=== PATIENT | female | born 1950 | race Asian ===

== ENCOUNTER 2017-07-24 06:05 | Day surgery (SDC) | payer MEDICARE, OTHER ==
[~2017-07-24] VITALS: Ht 152.4 cm; Wt 75.5 kg
[2017-07-24] MEDS ORDERED: SODIUM CHLORIDE 0.9% 1,000 ML IV ONE ×2 (06:18→07:00)
[2017-07-24] MEDS ORDERED: FentaNYL CITRATE-PF 100 MCG/2 ML VIAL ONE (07:28)
[2017-07-24] MEDS ORDERED: MIDAZOLAM HCL 2 MG/2 ML VIAL ONE (07:28)
[2017-07-24] MEDS ORDERED: MethylPREDNISolone SOD SUCC 125 MG/2 ML VIAL IVP ONE (09:00)
[2017-07-24] MEDS ORDERED: MethylPREDNISolone SOD SUCC 125 MG/2 ML VIAL ONE (09:10)
[2017-07-24] MEDS ORDERED: LIDOCAINE HCL 2% 30 ML JELLY TP ONE (12:00)
[2017-07-24] MEDS ORDERED: BENZOCAINE 20% 50 MCG/SPRAY 57 GM TP ONE (12:00)
[2017-07-24] MEDS ORDERED: LIDOCAINE HCL 4% 50 ML SOLUTION TP ONE (12:00)
[2017-07-24] MEDS ORDERED: OXYGEN THERAPY IH SCH (20:00)
== END 2017-07-24 10:00 | disposition home or self-care (01) ==
LOC: SURGERY 06:05
PROVIDERS: ATTEND Internal Medicine Critical Care Medicine
DX: J38.4 Edema of larynx (principal); B37.0 Candidal stomatitis; J45.909 Unspecified asthma, uncomplicated; Z98.890 Other specified postprocedural states; Z85.3 Personal history of malignant neoplasm of breast
CPT/HCPCS: 31623; 31624; 71010; 87015 ×2; 87070; 87101; 87147; 87205; 87220; 88108; 88312; 94640; J2250; J2930; J3010; J7030

== ENCOUNTER 2021-02-13 06:30 | Day surgery (SDC) | payer MEDICARE, OTHER ==
[2021-02-08 13:35] LABS: COVID AG,FIA SOURCE NASOPHARYNGEAL
[~2021-02-13] VITALS: Ht 147.3 cm; Wt 68.2 kg
[~2021-02-13 06:30] MED LIST: SODIUM CHLORIDE 0.9% 1,000 ML IV ONE
[2021-02-13] MEDS ORDERED: ALBUTEROL SULFATE 5 MG/ML 20 ML NEB SOLN [BULK] NEB ONE (06:31)
[2021-02-13] MEDS ORDERED: LIDOCAINE 2% 30 ML JELLY TP ONE (06:31)
[2021-02-13] MEDS ORDERED: BENZOCAINE 20% 50 MCG/SPRAY 57 GM TP ONE (06:31)
[2021-02-13] MEDS ORDERED: LIDOCAINE 4% 50 ML SOLUTION TP ONE (06:31)
[2021-02-13] MEDS ORDERED: FentaNYL CITRATE PF 100 MCG/2 ML VIAL ONE (07:18)
[2021-02-13] MEDS ORDERED: MIDAZOLAM HCL 2 MG/2 ML VIAL ONE (07:18)
[2021-02-13] MEDS ORDERED: DYRE50 PO (08:14)
[2021-02-13] MEDS ORDERED: DEXL30CA3 PO (08:14)
[2021-02-13] MEDS ORDERED: ROSU10TA72 PO (08:14)
[2021-02-13] MEDS ORDERED: LUBI8CAP PO (08:14)
[2021-02-13] MEDS ORDERED: LEVA0.6319 NEB (08:14)
[2021-02-13] MEDS ORDERED: ASPI-1450 PO (08:14)
[2021-02-13] MEDS ORDERED: ALEN10TA33 PO (08:14)
[2021-02-13] MEDS ORDERED: CYAN100056 IM (08:14)
[2021-02-13] MEDS ORDERED: LORA-999 PO (08:14)
[2021-02-13] MEDS ORDERED: ERGO500054 PO (08:14)
[2021-02-13] MEDS ORDERED: CYAN100T45 PO (08:14)
[2021-02-13] MEDS ORDERED: MONT-35 PO (08:14)
[2021-02-13 08:15] LABS: GLUCOMETER DEV NAME(LOC) SDS.; GLUCOSE,POINT OF CARE 134 MG/DL (70-110)
[2021-02-13] MEDS ORDERED: MethylPREDNISolone SOD SUCC 125 MG/2 ML VIAL IVP ONE (09:00)
[2021-02-13] MEDS ORDERED: MethylPREDNISolone SOD SUCC 125 MG/2 ML VIAL ONE (09:45)
[2021-02-13] MEDS ORDERED: OXYGEN THERAPY IH SCH (20:00)
== END 2021-02-13 10:20 | disposition home or self-care (01) ==
LOC: SURGERY 06:30
PROVIDERS: ATTEND Internal Medicine Critical Care Medicine
DX: J38.4 Edema of larynx (principal); B37.0 Candidal stomatitis; J44.9 Chronic obstructive pulmonary disease, unspecified; Z98.890 Other specified postprocedural states; Z79.899 Other long term (current) drug therapy
CPT/HCPCS: 31623; 31624; 71045; 82962; 87015; 87070; 87077; 87101; 87205; 87206; 87220; 87426; 88108; 88184; 88185; 88312; C9803; J2250; J2930; J3010; J7030; J7611; Z7610

== ENCOUNTER 2023-01-16 06:40 | Day surgery (SDC) | payer MEDICARE, OTHER ==
[~2023-01-16] VITALS: Ht 147.3 cm; Wt 68.1 kg
[~2023-01-16 06:40] MED LIST changes: +ALEN10TA33 PO; +ASPI-1450 PO; +CYAN100T45 PO; +DEXL30CA3 PO; +ERGO500054 PO; +LEVA0.6319 NEB; +LORA-999 PO; +LUBI8CAP PO; +MONT-35 PO; +ROSU10TA72 PO; -SODIUM CHLORIDE 0.9% 1,000 ML IV ONE; +TRIA50CA3 PO
[2023-01-16] MEDS ORDERED: BENZOCAINE 20% 50 MCG/SPRAY 57 GM TP ONE (06:41)
[2023-01-16] MEDS ORDERED: ALBUTEROL SULFATE 2.5 MG/0.5 ML NEB SOLUTION NEB ONE (06:41)
[2023-01-16] MEDS ORDERED: LIDOCAINE 2% 11 ML JELLY TP ONE (06:41)
[2023-01-16] MEDS ORDERED: LIDOCAINE 4% 50 ML SOLUTION TP ONE (06:41)
[2023-01-16] MEDS ORDERED: SODIUM CHLORIDE 0.9% 1,000 ML ONE (06:53)
[2023-01-16] MEDS ORDERED: SODIUM CHLORIDE 0.9% 1,000 ML IV ONE (07:00)
[2023-01-16] MEDS ORDERED: FentaNYL CITRATE PF 100 MCG/2 ML VIAL ONE (07:35)
[2023-01-16] MEDS ORDERED: MIDAZOLAM HCL 2 MG/2 ML VIAL ONE (07:35)
[2023-01-16 08:41] LABS: GLUCOMETER DEV NAME(LOC) SDS.; GLUCOSE,POINT OF CARE 133 MG/DL (70-110)
[2023-01-16] MEDS ORDERED: MethylPREDNISolone SOD SUCC 125 MG/2 ML VIAL ONE (09:45)
[2023-01-16] MEDS ORDERED: MethylPREDNISolone SOD SUCC 125 MG/2 ML VIAL IVP ONE (10:00)
== END 2023-01-16 11:00 | disposition home or self-care (01) ==
LOC: SURGERY 06:40
PROVIDERS: ATTEND Internal Medicine Critical Care Medicine
DX: J38.4 Edema of larynx (principal); B37.0 Candidal stomatitis; Z79.899 Other long term (current) drug therapy; Z98.890 Other specified postprocedural states; I10 Essential (primary) hypertension; Z90.49 Acquired absence of other specified parts of digestive tract; E78.00 Pure hypercholesterolemia, unspecified; Z85.3 Personal history of malignant neoplasm of breast
CPT/HCPCS: 31623; 88112; 82962; 87206; 87101; 87220; 87070; 31624; 94640; 71045; 87015; J3010; J2250; J2930; Q9967; J7030; J7613; Z7610

== ENCOUNTER 2024-03-25 06:32 | Day surgery (SDC) | payer MEDICARE, OTHER ==
[~2024-03-25] VITALS: Ht 152.4 cm; Wt 68.0 kg
[2024-03-25] MEDS ORDERED: LIDOCAINE 2% 11 ML JELLY TP ONE (06:33)
[2024-03-25] MEDS ORDERED: BENZOCAINE 20% 50 MCG/SPRAY 57 GM TP ONE (06:33)
[2024-03-25] MEDS ORDERED: ALBUTEROL SULFATE 2.5 MG/0.5 ML NEB SOLUTION NEB ONE (06:33)
[2024-03-25] MEDS ORDERED: LEVALBUTEROL 1.25 MG/0.5 ML NEB SOLUTION NEB ONE (06:33)
[2024-03-25] MEDS ORDERED: LIDOCAINE 4% 50 ML SOLUTION TP ONE (06:33)
[2024-03-25] MEDS ORDERED: SODIUM CHLORIDE 0.9% 1,000 ML ONE (06:46)
[2024-03-25] MEDS ORDERED: MIDAZOLAM HCL 2 MG/2 ML VIAL ONE (07:59)
[2024-03-25] MEDS ORDERED: FentaNYL CITRATE PF 100 MCG/2 ML VIAL ONE (07:59)
[2024-03-25 08:35] LABS: GLUCOMETER DEV NAME(LOC) SDS.; GLUCOSE,POINT OF CARE 110 MG/DL (70-110)
[2024-03-25] MEDS: SODIUM CHLORIDE 0.9% 1,000 ML IV ONE (08:43)
[2024-03-25 09:00] VITALS: PULSE 82; RESP 16; O2SAT 100
[2024-03-25] MEDS: 0.9% SODIUM CHLORIDE 1,000 ML BAG IV ONE (09:02)
[2024-03-25] MEDS ORDERED: MethylPREDNISolone SOD SUCC 125 MG/2 ML VIAL ONE (09:23)
[2024-03-25] MEDS: MethylPREDNISolone SOD SUCC 125 MG/2 ML VIAL IVP ONE (09:30)
== END 2024-03-25 12:20 | disposition home or self-care (01) ==
LOC: SURGERY 06:32
PROVIDERS: ATTEND Internal Medicine Critical Care Medicine
DX: R05.3 Chronic cough (principal); J38.4 Edema of larynx; B37.0 Candidal stomatitis; R06.2 Wheezing; R91.8 Other nonspecific abnormal finding of lung field; J84.10 Pulmonary fibrosis, unspecified; J91.8 Pleural effusion in other conditions classified elsewhere; J98.8 Other specified respiratory disorders; I51.9 Heart disease, unspecified
CPT/HCPCS: 31623; 82962; 87206; 87101; 87220; 87070; 31624; 94640; 71045; 87015; J3010; J2250; J2919; J7030; J7613; Z7610

== ENCOUNTER 2025-08-25 06:47 | Day surgery (SDC) | payer OTHER ==
[~2025-08-25] VITALS: Ht 152.4 cm; Wt 68.0 kg
[~2025-08-25 06:47] MED LIST changes: -LORA-999 PO; +LORA0.5T20 PO; -ROSU10TA72 PO; +ROSU10TA98 PO
[2025-08-25] MEDS ORDERED: SODIUM CHLORIDE 0.9% 1,000 ML ONE (06:48)
[2025-08-25] MEDS: SODIUM CHLORIDE 0.9% 1,000 ML IV ONE (07:21)
[2025-08-25] MEDS ORDERED: MIDAZOLAM HCL 2 MG/2 ML VIAL ONE (08:27)
[2025-08-25] MEDS ORDERED: FentaNYL CITRATE PF 100 MCG/2 ML VIAL ONE (08:27)
[2025-08-25 08:35] LABS: GLUCOMETER DEV NAME(LOC) SDS.; GLUCOSE,POINT OF CARE 120 MG/DL (70-110)
[2025-08-25 10:00] VITALS: PULSE 90; RESP 20; O2SAT 100
[2025-08-25] MEDS ORDERED: LIDOCAINE 4% 50 ML SOLUTION ONE (12:30)
[2025-08-25] MEDS ORDERED: ALBUTEROL SULFATE 2.5 MG/0.5 ML 5 ML NEB SOLUTION NEB ONE (12:30)
[2025-08-25] MEDS ORDERED: LIDOCAINE 2% 11 ML JELLY ONE (12:30)
[2025-08-25] MEDS ORDERED: BENZOCAINE 20% 50 MCG/SPRAY 57 GM ONE (12:30)
== END 2025-08-25 13:30 | disposition home or self-care (01) ==
LOC: SURGERY 06:47
PROVIDERS: ATTEND Internal Medicine Critical Care Medicine
DX: R05.3 Chronic cough (principal); R49.0 Dysphonia; R04.2 Hemoptysis; J38.4 Edema of larynx; B37.0 Candidal stomatitis; E11.9 Type 2 diabetes mellitus without complications; E78.00 Pure hypercholesterolemia, unspecified; J45.909 Unspecified asthma, uncomplicated; Z79.84 Long term (current) use of oral hypoglycemic drugs; Z79.899 Other long term (current) drug therapy; Z98.890 Other specified postprocedural states
CPT/HCPCS: 31623; 82962; 87206; 87101; 87220; 87070; 88108; 31624; 94640; 71045; 87015; J3010; J2250; J2919; J7030; Z7610